=== PATIENT | female | born 1980 | race Caucasian/White ===

== ENCOUNTER 2017-02-23 07:30 | Inpatient (IN) | payer OTHER ==
[~2017-02-23] VITALS: Ht 157.5 cm; Wt 3.2 kg
[2017-02-23] MEDS ORDERED: LOVENOX40 MG/0.4 SUBCUTANEO (09:15)
[2017-02-23] MEDS ORDERED: FOLIC ACID1 MG PO (09:16)
[2017-02-23] MEDS ORDERED: PRENATABS RX T1 EACH PO (09:16)
[2017-02-23] MEDS ORDERED: ASPIR 8181 MG PO (09:16)
[2017-02-23] MEDS ORDERED: ZYRTEC10 MG PO (09:17)
[2017-03-02] MEDS ORDERED: LOVENOX40 MG/0.4 SUBCUTANEO (12:54)
[2017-03-02] MEDS ORDERED: MIRALAX17 GM PO (12:54)
[2017-03-02] MEDS ORDERED: OXYC1TAB9 PO (12:54)
== END 2017-03-02 14:19 | disposition home or self-care (01) | DRG 765 ==
LOC: O/R 02-28 06:00 → OB/GYN 02-28 06:00 → O/R 02-28 07:00 → OB/GYN 02-28 11:51
PROVIDERS: Obstetrics & Gynecology
PROC: 0UL70ZZ Occlusion of Bilateral Fallopian Tubes, Open Approach (ICD-10-PCS; 2017-02-28)
PROC: 4A1HXCZ Monitoring of Products of Conception, Cardiac Rate, External Approach (ICD-10-PCS; 2017-02-28)
PROC: 10D00Z1 Extraction of Products of Conception, Low, Open Approach (ICD-10-PCS; principal; 2017-02-28 07:00)
DX: O69.81X0 Labor and delivery complicated by cord around neck, without compression, not applicable or unspecified (principal); O99.12 Other diseases of the blood and blood-forming organs and certain disorders involving the immune mechanism complicating childbirth; Z3A.38 38 weeks gestation of pregnancy; Z37.0 Single live birth; Z30.2 Encounter for sterilization; O09.523 Supervision of elderly multigravida, third trimester

== ENCOUNTER → 2017-05-01 | Outpatient (CLI) | payer OTHER ==
[~2017-05-01] MED LIST: ASPIR 8181 MG PO; FOLIC ACID1 MG PO; LOVENOX40 MG/0.4 SUBCUTANEO; MIRALAX17 GM PO; OXYC1TAB9 PO; PRENATABS RX T1 EACH PO; ZYRTEC10 MG PO
== END | disposition home or self-care (01) ==
LOC: PPH VACUNA 15:21
DX: Z23 Encounter for immunization (principal)